=== PATIENT | male | born 1965 ===

== ENCOUNTER 2016-10-13 10:40 | Emergency (ER) | payer MEDICARE ==
[2016-10-13 10:48] VITALS: BMI 27.3
--- NOTE | 2016-10-13 11:42 | ED PDOC ---
Arrival/HPI - General Historian: Patient - History of Present Illness Symptom Onset: Gradual Activities at Onset: Rest Context: Sitting - General Chief Complaint: Chest Pain Time Seen by Provider: 10/13/16 11:09 - History of Present Illness Narrative History of Present Illness (Text): 10/13/16 11:38 50 M with PMHx of HTN, Depression, and substance abuse on methadone program presents to [facility] ED with complaints of chest discomfort. Pt noted that approx 2 weeks ago, he began feeling dizzy and took his BP at a local pharmacy store which revealed him to be HTN. He has been noncompliant with his anti-htn medications, and has not been taking his medication for approx a yr. After his visit to the local pharmacy, he decided to take his ant-htn medication. His symptoms improved after starting back on his medications. He ran out of his medications yesterday, and his chest discomfort began at approx 11pm last night. he notes the discomfort to be a 2/10 in intensity and intermittent, described as "cramping/tightness". He denied fever, chills, sob, chest pains, palpitations, abdominal pains, n/v/d/c or urinary symptoms. PMHx: HTN, Depression, substance abuse PSHx: None SHx: Lives in [place], works at [employer], (+)tobacco 1/2ppd x 30 yrs (+) etoh ocassionally, hx of ivdu, currently on methadone program- 22mg kolidiscope MIKA Meds: Amlodipine 5mg daily Allergies: NKDA PMD: Dr. Tyler ([facility]) Past Medical History - Cardiac Hx Cardiac Disorders: Yes Hx Hypertension: Yes - Pulmonary Hx Respiratory Disorders: No - Neurological Hx Neurological Disorder: No - HEENT Hx HEENT Disorder: No - Renal Hx Renal Disorder: No - Endocrine/Metabolic Hx Endocrine Disorders: No - Hematological/Oncological Hx Blood Disorders: No - Integumentary Hx Dermatological Disorder: No - Musculoskeletal/Rheumatological Hx Musculoskeletal Disorders: No - Gastrointestinal Hx Gastrointestinal Disorders: No - Genitourinary/Gynecological Hx Genitourinary Disorders: No - Psychiatric Hx Psychophysiologic Disorder: No Hx Substance Use: No Family/Social History Family/Social History: No Known Family HX Smoking Status: Heavy Smoker > 10 Cigarettes Daily Hx Alcohol Use: No Hx Substance Use: No Allergies/Home Meds Allergies/Adverse Reactions: Allergies No Known Allergies Allergy (Verified 10/13/16 10:48) Review of Systems - Physician Review All systems were reviewed & negative as marked: Yes - Review of Systems Constitutional: Normal Eyes: Normal ENT: Normal Respiratory: Normal Cardiovascular: Other (tightness) Gastrointestinal: Normal Genitourinary Male: Normal Musculoskeletal: Normal Skin: Normal Neurological: Normal Endocrine: Normal Hemo/Lymphatic: Normal Psychiatric: Normal Physical Exam Vital Signs Reviewed: Yes Temperature: Afebrile Blood Pressure: Normal Pulse: Regular Respiratory Rate: Normal Appearance: Positive for: Well-Appearing, Non-Toxic, Comfortable Pain Distress: None Mental Status: Positive for: Alert and Oriented X 3 - Systems Exam Head: Present: Atraumatic, Normocephalic Pupils: Present: PERRL Extroacular Muscles: Present: EOMI Conjunctiva: Present: Normal Mouth: Present: Moist Mucous Membranes Neck: Present: Normal Range of Motion Respiratory/Chest: Present: Clear to Auscultation, Good Air Exchange. No: Respiratory Distress, Accessory Muscle Use Cardiovascular: Present: Regular Rate and Rhythm, Normal S1, S2. No: Murmurs Abdomen: Present: Normal Bowel Sounds. No: Tenderness, Distention, Peritoneal Signs Upper Extremity: Present: Normal Inspection. No: Cyanosis, Edema Lower Extremity: Present: Normal Inspection. No: Edema Neurological: Present: GCS=15, CN II-XII Intact, Speech Normal Skin: Present: Warm, Dry, Normal Color. No: Rashes Psychiatric: Present: Alert, Oriented x 3, Normal Insight, Normal Concentration Vital Signs Temp Pulse Pulse Resp BP BP Pulse Ox 10/13/16 13:00 98 F 72 15 126/88 95 10/13/16 11:17 71 137/79 10/13/16 11:02 97.8 F 70 15 137/63 96 10/13/16 10:48 98 F 82 15 136/75 97 Medical Decision Making ED Course and Treatment: 10/13/16 12:14 Patient seen and evaluated with resident. Agree with HPI, clinical findings, plan and treatment. A 50 year old male who presents to emergency room for evaluation of chest pain since 11 am. Patient has been non-compliant with his hypertensive medication and recently started on htn medication. States that he ran out of medication yesterday. Patient is comfortable now and states CP has resolved. Pt discharged home and advised to f/u with pmd. (Gerardo Marquis) 10/13/16 11:51 50 M with PMHx of HTN noncompliant with medications presenting with complaints of chest discomfort. R/o ACS -- CBC -- CMP -- EKG -- Troponins -- Asa -- Reassess and dispo (Char Nelson) - Lab Interpretations Lab Results: 10/13/16 11:30 10/13/16 11:30 Lab Results 10/13/16 12:32: Urine Color Yellow, Urine Appearance Clear, Urine pH 6.0, Ur Specific [place] >= 1.030, Urine Protein Trace H, Urine Glucose (UA) Negative, Urine Ketones Negative, Urine Blood Negative, Urine Nitrate Negative, Urine Bilirubin Negative, Urine Urobilinogen 1.0 H, Ur Leukocyte Esterase Negative, Urine RBC Negative, Urine WBC Negative, Urine Other Mucus 10/13/16 11:30: WBC 6.0, RBC 4.87, Hgb 14.0, Hct 40.7 L, MCV 83.6, MCH 28.7, MCHC 34.4, RDW 13.1, Plt Count 235, MPV 9.6, Gran % 68.8 H, Lymph % (Auto) 22.5 , [place] % (Auto) 5.9, Eos % (Auto) 2.5, Baso % (Auto) 0.3, Gran # 4.09, Lymph # 1.3, [place] # 0.4, Eos # 0.2, Baso # 0.02, Sodium 141, Potassium 4.7, Chloride 102 , Carbon Dioxide 31, Anion Gap 13, BUN 20, Creatinine 0.8, Est GFR ( Amer ) > 60, Est GFR (Non-Af Amer) > 60, Random Glucose 87, Calcium 9.5, Total Bilirubin 0.4, AST 29, ALT 29, Alkaline Phosphatase 51, Lactate Dehydrogenase 461, Total Creatine Kinase 130, Troponin I < 0.01, Total Protein 7.7, Albumin 4.2, Globulin 3.5, Albumin/Globulin Ratio 1.2 - Medication Orders Current Medication Orders: Discontinued Medications Aspirin (Aspirin) 325 mg PO STAT STA Stop: 10/13/16 11:35 Last Admin: 10/13/16 11:45 Dose: 325 MG Disposition/Present on Arrival - Present on Arrival Any Indicators Present on Arrival: No History of DVT/PE: No History of Uncontrolled Diabetes: No Urinary Catheter: No History of Decub. Ulcer: No History Surgical Site Infection Following: None - Disposition Have Diagnosis and Disposition been Completed?: Yes Disposition Time: 12:00 - Disposition Diagnosis: Chest discomfort Disposition: HOME/ ROUTINE Condition: IMPROVED Discharge Instructions (ExitCare): Chest Pain (DC) Additional Instructions: 1. Pt is to fu with PMD Dr. Tyler or PMD of choice within 1 week 2. Pt is to take medications as prescribed 3. Pt to follow low salt, healthy diet and plenty of exercise 4. Pt welcome to return to [facility] ED if develop any acute symptoms Prescriptions: amLODIPine [Norvasc] 5 mg PO DAILY #5 tab Referrals: Kushal Tyler [Primary Care Provider] - Follow up with primary Forms: WORK NOTE
[2016-10-13 11:52] LABS: ADD MANUAL DIFF? NO
[2016-10-13 11:58] LABS: BASO # 0.02 K/mm3 (0.0-2.0); BASO % 0.3 % (0.0-3.0); EOS # 0.2 (0.0-0.7); EOS % 2.5 % (1.5-5.0); GRAN # 4.09 (1.4-6.5); GRAN % 68.8 % (50.0-68.0); HEMATOCRIT 40.7 % (42.0-52.0); LYMPH # 1.3 (1.2-3.4); LYMPH % 22.5 % (22.0-35.0); MEAN CELL VOLUME 83.6 fL (80.0-105.0); MEAN CORPUSCULAR HEMOGLOBIN 28.7 pg (25.0-35.0); MEAN CORPUSCULAR HGB CONC 34.4 g/dl (31.0-37.0); MEAN PLATELET VOLUME 9.6 fl (7.0-11.0); MONO # 0.4 (0.1-0.6); MONO % 5.9 % (1.0-6.0); PLATELET COUNT 235 10^3/uL (120.0-450.0); RED CELL DISTRIBUTION WIDTH 13.1 % (11.5-14.5)
[2016-10-13 12:13] LABS: ALB/GLOB RATIO 1.2 (1.1-1.8); ALKALINE PHOSPHATASE 51 U/L (38-133); ALT/SGPT 29 U/L (7-56); AST/SGOT 29 U/L (15-59); BILIRUBIN,TOTAL 0.4 mg/dL (0.2-1.3); BLOOD UREA NITROGEN 20 mg/dL (7-21); CALCIUM 9.5 mg/dL (8.4-10.5); CARBON DIOXIDE 31 mmol/L (21-33); CHLORIDE 102 mmol/L (95-110); GFR AFRICAN-AMERICAN > 60; GLUCOSE,RANDOM 87 mg/dL (70-110); POTASSIUM 4.7 mmol/L (3.6-5.0); SODIUM 141 mmol/L (132-148); TOTAL PROTEIN 7.7 g/dL (5.8-8.3)
[2016-10-13 12:55] LABS: URINE BILIRUBIN NEGATIVE (NEGATIVE); URINE BLOOD NEGATIVE (NEGATIVE); URINE GLUCOSE (UA) NEGATIVE (NEGATIVE); URINE KETONE NEGATIVE (NEGATIVE); URINE LEUKOCYTE ESTERASE NEGATIVE Leu/uL (NEGATIVE); URINE PROTEIN TRACE mg/dL (<30 mg/dL)
[2016-10-13 12:57] LABS: TROPONIN I < 0.01 ng/mL
[2016-10-13 13:02] LABS: URINE APPEARANCE CLEAR (CLEAR); URINE COLOR YELLOW (YELLOW)
[2016-10-13 13:08] VITALS: TEMP 98
[2016-10-13 13:10] LABS: URINE RBC NEGATIVE /hpf (0-2); URINE WBC NEGATIVE /hpf (0-6)
[2016-10-13 14:15] VITALS: BP 117/69; PULSE 77; RESP 18; O2SAT 98
--- NOTE | 2016-10-13 19:55 | CARD ---
APPROVED REPORT EKG Measurement Heart [id number] <Conclusion> Normal sinus rhythm Normal ECG
== END 2016-10-13 14:18 | disposition home or self-care (01) ==
LOC: ED 10:40
DX: R07.89 Other chest pain (principal); F17.210 Nicotine dependence, cigarettes, uncomplicated; I10 Essential (primary) hypertension